=== PATIENT | female | born 1995 | race Two or more races ===

== ENCOUNTER 2021-12-28 09:07 | Emergency (ER) | payer OTHER, SELFPAY ==
[2021-12-28 09:29] VITALS: BP 129/82; PULSE 87; RESP 17; TEMP 36.4; O2SAT 98; BMI 27.3
--- NOTE | 2021-12-28 10:36 | ED.SKABFB ---
HPI - Skin/Abscess/Foreign Bdy General Chief complaint: Skin/Abscess/Foreign Body Stated complaint: abscess Time Seen by Provider: 12/28/21 09:43 Source: patient Mode of arrival: ambulatory Limitations: no limitations History of Present Illness HPI narrative: 26-year-old female healthy here with reports of 2 days of swelling and redness the right groin. Patient denies any fevers, chills, vomiting, general malaise. Related Data Previous Rx's Medication Instructions Recorded doxycycline monohydrate 100 mg 100 mg PO BID #20 tab 12/28/21 tablet Allergies Allergy/AdvReac Type Severity Reaction Status Date / Time No Known Allergies Allergy Unverified 07/31/20 17:46 Review of Systems Review of Systems: Yes all other systems are reviewed and are negative Constitutional: Constitutional: Reports no additional constitutional complaints, Denies body ache(s), Denies chills, Denies fever(s), Denies headache(s) and Denies weakness Eyes: Eyes: Reports no additional eye complaints and Denies change in vision ENT: Reports system reviewed and no additional complaints, except as documented, Denies dizziness, Denies headache(s), Denies nasal congestion, Denies nasal discharge and Denies neck pain Cardiovascular: Cardiovascular: Reports no additional cardiovascular complaints, Denies chest pain, Denies leg edema and Denies dyspnea Respiratory: Respiratory: Reports no additional respiratory complaints, Denies cough and Denies dyspnea Gastrointestinal: Gastrointestinal: Reports no additional gastrointestinal complaints, Denies abdominal pain, Denies diarrhea, Denies nausea and Denies vomiting Genitourinary: Genitourinary: Reports no additional female genitourinary complaints and Denies urinary incontinence Musculoskeletal: Musculoskeletal: Reports no additional musculoskeletal complaints, Denies back pain, Denies arthralgias, Denies joint swelling, Denies neck pain, Denies numbness and Denies tingling Integumentary/Breasts: Skin/Breast: Reports system reviewed and no additional complaints, except as docu, Reports swelling, Reports erythema and Denies rash Neurologic: Reports system reviewed and no additional complaints, except as documented, Denies Abnormal speech present, Denies dizziness, Denies headache(s), Denies numbness, Denies tingling and Denies weakness PMF Past Medical History Attestation statement: The following information was validated with the patient. Source: old records reviewed and nursing notes reviewed Social History Social History Advance Directives: Yes Advance Directives Information Provided: Yes Advance Directives on File: No Patient : No Physical Exam Vital Signs: Vital Signs: Last Vital Signs Temp 97.5 F 12/28/21 09:29 Pulse 83 12/28/21 11:18 Resp 16 12/28/21 11:18 BP 102/56 L 12/28/21 11:18 Pulse Ox 98 12/28/21 11:18 BMI result Body Mass Index 27.3 Const: General: cooperative, healthy appearing, comfortable and no acute distress Orientation/consciousness: patient oriented x3 Limitations: no limitations HENMT: Head: Yes normal to inspection Ears: hearing grossly normal bilaterally General nose exam: Normal external nose present Face and sinus: Yes normal facial exam Mouth: Normal oral and palatal mucosa present Throat: Yes posterior oropharynx normal Eyes: General: appearance normal, both eyes and all related structures Pupils: Equal, round and reactive pupils present Neck: Neck: Yes normal visual inspection Chest: Chest palpation & inspection: normal inspection of the chest Resp: Effort & Inspection: normal respiratory effort Auscultation: clear to auscultation bilaterally Cardio: Rate: regular rate Rhythm: regular rhythm Peripheral pulses: Peripheral pulses 2+ throughout GI: Other: To the right groin there is a medium-sized abscess with fluctuance and tenderness. Inspection: Yes normal to inspection Palpation (GI): Soft to palpation and nontender Auscultation: normal bowel sounds Back/Spine/Pelvis: Thoracic/Lumbar Spine: thoracic and lumbar spine normal to inspection Skin: General skin exam: no rashes or lesions noted Neuro: General: patient oriented x3, no focal motor deficits and normal sensation to monofilament Cranial nerves: Yes Equal, round and reactive pupils present Cognition (Neuro): normal cognition Speech: No Abnormal speech present Gait exam (Neuro): Normal gait present Motor exam (neuro): 5/5 motor strength present throughout Extrem: General: Yes normal to inspection Course Course Course Narrative: Abscess to the right groin for 2 days Will need I and D 1215-see procedure note. Patient tolerated well. Reviewed worrisome signs and symptoms of when to return to the emergency department. Comfortable discharge home. MDM - Skin/Abscess/Foreign Bdy Differential Diagnosis Differential diagnosis: Likely abscess of skin or subcutaneous tissue Medical Records Attestation: I reviewed the patient's medical records. Lab Data Attestation: I reviewed the patient's lab results. Procedures Abscess I/D Site: other (Groin) Side (if applicable): right Local Anesthetic: lidocaine 2% Amount of anesthesia used (mL): 5 Technique: incised with blade Amount of fluid expressed (mL): 10 Sent for culture/gram staining?: No Irrigation: Yes Packing used?: iodoform Discharge Plan Discharge Clinical Impression: Abscess of skin or subcutaneous tissue Patient Disposition: Home, Self-Care Instructions: Abscess (ED) Additional Instructions: Warm compresses Return in 48 hours for packing removal Prescriptions: New doxycycline monohydrate 100 mg tablet 100 mg PO BID Qty: 20 0RF Referrals: Maureen Stone MD [Primary Care Provider] - 2 days Interventions: ED Discharge Assessment Last Done: 12/28/21 11:56 Discharge Date/Time: 12/28/21 11:57
[2021-12-28] MEDS: Lidocaine HCl 2 % MPF 5 ML VIAL SUBCUT (11:14)
[2021-12-28] MEDS: Lidocaine 4 % Cream KIT 1 APPL TOPICAL (11:14)
[2021-12-28 11:18] VITALS: BP 102/56; PULSE 83; RESP 16; O2SAT 98
== END 2021-12-28 11:57 | disposition home or self-care (01) ==
PROVIDERS: Emergency Provider Emergency Medicine; PCP Internal Medicine
DX: L02.214 Cutaneous abscess of groin (principal)
CPT/HCPCS: 10060; 99283; 99284

== ENCOUNTER 2022-07-13 08:22 | Outpatient (REF) | payer OTHER, SELFPAY ==
[2022-07-13 08:46] LABS: Binax Internal Control QC Valid; Binax Now Covid-19 Ag Negative (Negative)
== END 2022-07-13 08:23 | disposition home or self-care (01) ==
LOC: HO.HMGCLDS 08:22
PROVIDERS: Visit Provider Internal Medicine
DX: Z20.822 Contact with and (suspected) exposure to COVID-19 (principal); J06.9 Acute upper respiratory infection, unspecified
CPT/HCPCS: 87811; C9803

== ENCOUNTER 2023-01-28 12:42 | Outpatient (REF) | payer OTHER, SELFPAY ==
[2023-01-28 13:21] LABS: Binax Internal Control QC Valid; Binax Now Covid-19 Ag Negative (Negative); Binax Performed by: PAULP
== END 2023-01-28 12:43 | disposition home or self-care (01) ==
LOC: HO.HMGCLDS 12:42
PROVIDERS: Visit Provider Nurse Practitioner Family
DX: Z20.822 Contact with and (suspected) exposure to COVID-19 (principal); J06.9 Acute upper respiratory infection, unspecified
CPT/HCPCS: 87811; C9803

== ENCOUNTER 2023-08-17 08:24 | Outpatient (AMB) | payer OTHER, SELFPAY ==
[2023-08-17 08:28] VITALS: BP 110/62; PULSE 85; TEMP 36.6; O2SAT 100
--- NOTE | 2023-08-17 08:28 | AM.OFFWIN_ITS ---
Intake Vital Signs 08/17/23 08:28 Height 5 ft BP 110/62 Blood Pressure Location Lt brachial Position Sitting Pulse 85 Pulse Source Pulse Oximeter Temp 97.9 F Temp Source Temporal Artery Scan Pulse Oximetry (%) 100 Oxygen Delivery Method Room Air Intake Visit Reasons: EP-lost smell, cough Intake Note: pt is here for lost of smell, cough Patient Tobacco Use Status: Never used Tobacco Allergies No Known Allergies Allergy (Verified 08/17/23 08:29) Do you need a note to return to daycare/school/sports/work: Yes HPI HPI Comments History of Present Illness Details 0834 This is a 27-year-old female without significant medical history presenting to the clinic for evaluation of fatigue, malaise, congestion, loss of taste and smell for the past few days, also reporting associated myalgias. 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 Also kids at home covid + Denies chest pain, shortness of breath, nausea, vomiting, abdominal pain, headache, vision changes, dizziness and weakness. Eating and drinking well. Physical examination benign Likely viral illness versus COVID-19. Unlikely neurological cause of loss of taste and smell, unlikely PE, pneumonia. Plan viral test. Supportive measures. Educated patient on diagnosis and treatment plan, answered all question, patient verbalizes understanding. At this time patient will be discharged home, advised to return with new or worsening symptoms. Educated on worrisome signs and symptoms and when to return. At this time I feel comfortable discharge home. [facility] Social History Housing: House Patient Tobacco Use Status: Never used Tobacco e-Cigarette/Vaping Use: Never Used Second Hand Smoke Exposure: No service: No Current occupational status: employed Current occupation: [employer] [place] Current occupational exposures/hazards: Yes Cognitive needs: No Hearing needs: No Vision needs: No Review of Systems Const Details: Constitutional : No Weight loss, No Fever, No Chills, + Fatigue, + Malaise ENT/Mouth : No sore throat, No Rhinorrhea Eyes: No Eye Pain, No Swelling, No Redness Cardiovascular : No Chest Pain, No SOB, No Dyspnea on Exertion, No Orthopnea, No Edema, No Palpitations Respiratory : No Cough, No Sputum, No Wheezing Gastrointestinal : No Nausea, No Vomiting, No Diarrhea, No Constipation, No abdominal Pain, No Hematochezia, No Melena Genitourinary : No Dysuria, No Urinary Frequency, No Hematuria, Musculoskeletal : No joint pain, + Myalgias, No Joint Swelling Skin : No Skin Lesions, No rash Neuro : No Weakness, No Numbness, No Dizziness, No Headache Psych : No Anxiety/Panic, No Depression All other systems reviewed and are negative All systems reviewed & are unremarkable except as noted in HPI and below Physical Exam Vital Signs: Last Vital Signs Temp 97.9 F 08/17/23 08:28 Pulse 85 08/17/23 08:28 BP 110/62 08/17/23 08:28 Pulse Ox 100 08/17/23 08:28 Oxygen Delivery Method Room Air 08/17/23 08:28 Vital signs stable Appearance: Alert.? Oriented X3.? No acute distress.? Head: Normocephalic, atraumatic, no step-offs or deformities Eyes: Pupils equal, round and reactive to light.? CVS: Normal heart rate and rhythm.? Pulses normal.? Respiratory: No respiratory distress.? Breath sounds normal.? Abdomen: Soft and nontender.? Skin: Skin warm and dry.? Normal skin color.? Normal skin turgor.? Extremities: No lower extremity edema.? No calf ttp. 5/5 strength to bilateral upper and lower extremitie Neuro: Oriented X 3.? No motor deficit.? No sensory deficit. CN 2-12 intact Assessment & Plan Assessment & Plan (1) Viral illness: Code(s): B34.9 - Viral infection, unspecified Plan Take your medications as prescribed. If you were prescribed antibiotics today, it is important that you take your medication to their entirety, do not skip any doses, do not finish them early. Follow-up with your primary care provider this week. Return to the emergency department with new or worsening symptoms. Such as fevers, chills, chest pain, shortness of breath, nausea, vomiting, dizziness, headache, vision changes, lethargy In case of emergency call 911 Orders: Orders SARS-CoV2/FLU/RSV Today B34.9 - Viral infection, unspecified BinaxNOW Covid-19 Ag Today B34.9 - Viral infection, unspecified Coding Level of Care Code Est Pt Level 3 (26349) Diagnoses Viral illness B34.9
== END 2023-08-17 08:46 | disposition home or self-care (01) ==
PROVIDERS: PCP Nurse Practitioner Family; Visit Provider Physician Assistant
DX: B34.9 Viral infection, unspecified (principal)
CPT/HCPCS: 99213

== ENCOUNTER 2023-08-17 08:37 | Outpatient (REF) | payer OTHER, SELFPAY ==
[2023-08-17 09:06] LABS: Binax Internal Control QC Valid; Binax Now Covid-19 Ag Negative (Negative); Binax Performed by: HO.BONILM
== END 2023-08-17 08:38 | disposition home or self-care (01) ==
LOC: HO.HMGCLDS 08:37
PROVIDERS: PCP Nurse Practitioner Family; Visit Provider Physician Assistant
DX: B34.9 Viral infection, unspecified (principal)
CPT/HCPCS: 87811

== ENCOUNTER 2023-08-17 08:38 | Outpatient (REF) | payer OTHER, SELFPAY ==
[2023-08-17 12:21] LABS: Influenza A PCR NEGATIVE (Negative); Influenza B PCR NEGATIVE (Negative); Resp Syncy Virus RNA Qual PCR NEGATIVE (Negative); SARS COV2 PCR INHOUSE NEGATIVE (Negative)
== END 2023-08-17 08:39 | disposition home or self-care (01) ==
LOC: HO.LAB 08:38
PROVIDERS: Visit Provider Physician Assistant
DX: B34.9 Viral infection, unspecified (principal)
CPT/HCPCS: 0241U

== ENCOUNTER 2023-08-30 09:26 | Outpatient (AMB) | payer OTHER, SELFPAY ==
--- NOTE | 2023-08-30 09:28 | A.OFFVIS_ITS ---
Intake Vital Signs 08/30/23 09:31 Height 5 ft Weight 156 lb BMI 30.5 BP 94/50 L Intake Visit Reasons: AUB/PCP Referral Intake Note: Last pap 2020 normal hx per pt @[facility] pt c/o heavy periods since stopping Depo The patient agreed to use of a medical records receptionist during this encounter. Scribed for WERO Gamble by Madai Cox, medical records receptionist, on 08/30/2023 at 9:54 am EST. Legal Analyst: Legal Analyst Present (Margo) Allergies No Known Allergies Allergy (Verified 08/30/23 09:33) Is last menstrual period known: Yes Last menstrual period: 08/09/23 HPI HPI Comments History of Present Illness Details She is here with complaints of heavy prolonged VB lasting 2 weeks at times. Was on Depo for many years; stopped 3 months ago. Delivered 2020, hx TOP 2021. Reports heavy menses since stopping Depo and regular menses prior starting Depo 7 years ago. Was seen at [facility] for blood transfusion and iron deficiency. Reports when she was on the Depo she felt depressed and angry. Now that she is off she feels normal. Reports taking RX for anxiety. Last pap 2020 normal hx per pt @[facility]. Reports a history of painful left breast lump that swells at times; no abscess or drainage noted in the past. Has breast fed in the past with no issues/or mastitis. No prior imaging. [facility] Medical History (Updated 08/30/23 @ 10:11 by Madai Cox) Breast pain, left Prolonged menstrual cycle Menorrhagia Anxiety Family History (Updated 08/30/23 @ 09:37 by DUNCAN Fontenot) Maternal Grandfather Colon cancer Social History (Updated 08/30/23 @ 09:37 by DUNCAN Fontenot) Housing: House Alcohol intake: current Alcohol intake frequency: holidays/special occasions only Patient Tobacco Use Status: Never used Tobacco e-Cigarette/Vaping Use: Never Used Second Hand Smoke Exposure: No service: No Current occupational status: employed Current occupation: [employer] [place] Current occupational exposures/hazards: Yes Sexual orientation: Straight/Heterosexual Gender identity: Female Cognitive needs: No Hearing needs: No Vision needs: No Female Reproductive History Menstrual Duration of menses: >10 days Date of last menstrual period: 08/09/23 control method: none Total pregnancies: 3 Full term: 2 Number of Living Children: 2 Ab induced: 1 Physical Exam Vital Signs: Last Vital Signs BP 94/50 L 08/30/23 09:31 BMI result Body Mass Index 30.5 Const General: cooperative, healthy appearing, comfortable, no acute distress, well developed, alert and awake Chest Other: left breast scar tissue at 6:00; tender with exam Chest palpation & inspection: normal inspection of the chest Breast/axilla inspection: Other (no puckering, dimpling, peau de orange, retraction, discharge, masses) Other: General: Yes bladder normal to palpation External Female Exam: normal external appearance and normal appearance of the urethra Speculum Exam - Vagina: normal appearance of the vagina, normal palpation and normal vaginal discharge Speculum Exam - Cervix: normal appearance of the cervix and normal palpation Bimanual exam- vagina & uterus: normal bimanual exam, normal palpation, bladder normal to palpation and normal palpation Bimanual Exam- Adnexa, other: normal adnexae and no masses Results AMB Test Urine AMB Test Urine Negative Last Edit by DUNCAN Fontenot on 08/30/23 09:41 Results Reviewed Results Reviewed: Laboratory Last Values Tst Clinic Negative 08/30/23 09:41 Assessment & Plan Assessment & Plan (1) Menorrhagia: Code(s): N92.0 - Excessive and frequent menstruation with regular cycle Plan: Discussed: Lab work ordered. Sign release of records from [facility]. All of her questions and concerns were addressed to the best of my ability and shared decision making. She is agreeable to plan of care. (2) Prolonged menstrual cycle: Code(s): N92.1 - Excessive and frequent menstruation with irregular cycle (3) control counseling: Code(s): Z30.09 - Encounter for other general counseling and advice on contraception Plan: Schedule BC consult. BC literature given. (4) Breast pain, left: Code(s): N64.4 - Mastodynia Plan: Breast US ordered. Follow up in person for results. Orders: Orders Thyroid Stimulating Hormone Today N92.1 - Excessive and frequent menstruation with irregular cycle Bacterial Vaginosis Panel Today N92.0 - Excessive and frequent menstruation with regular cycle, N92.1 - Excessive and frequent menstruation with irregular cycle AMB HCG Urine Test Today Z32.02 - Encounter for test, result negative US pelvic and transvaginal Today N93.9 - Abnormal uterine and vaginal bleeding, unspecified Complete Blood Count no Diff Today N93.9 - Abnormal uterine and vaginal bleeding, unspecified CT NG by PCR Today N92.0 - Excessive and frequent menstruation with regular cycle, N92.1 - Excessive and frequent menstruation with irregular cycle Pap Smear Today N92.0 - Excessive and frequent menstruation with regular cycle, N92.1 - Excessive and frequent menstruation with irregular cycle US breast LT complete Today N64.4 - Mastodynia Coding Level of Care Code New Pt Level 4 (16956) Diagnoses Menorrhagia N92.0 Prolonged menstrual cycle N92.1 control counseling Z30.09 Breast pain, left N64.4
[2023-08-30 09:31] VITALS: BP 94/50; BMI 30.5
== END 2023-08-30 10:14 | disposition home or self-care (01) ==
PROVIDERS: PCP Nurse Practitioner Family; Visit Provider Advanced Practice Midwife
DX: N92.0 Excessive and frequent menstruation with regular cycle (principal); N92.1 Excessive and frequent menstruation with irregular cycle; Z30.09 Encounter for other general counseling and advice on contraception; N64.4 Mastodynia; Z32.02 Encounter for pregnancy test, result negative
CPT/HCPCS: 99204

== ENCOUNTER 2023-08-30 09:26 | Outpatient (REF) | payer OTHER, SELFPAY | END 2023-08-30 09:27 | disposition home or self-care (01) | LOC: HO.LAB 09:26 | PROVIDERS: PCP Nurse Practitioner Family; Visit Provider Advanced Practice Midwife | DX: N92.1 Excessive and frequent menstruation with irregular cycle (principal); N64.4 Mastodynia; Z30.09 Encounter for other general counseling and advice on contraception | CPT/HCPCS: 81025; 99202 ==

== ENCOUNTER 2023-08-30 10:04 | Outpatient (REF) | payer OTHER, SELFPAY ==
[2023-08-30 16:19] LABS: CT PCR NOT DETECTED (Not Detect.); NG PCR NOT DETECTED (Not Detect.)
[2023-08-31 12:57] LABS: BV Int Neg Control Negative (Negative); BV Int Pos Control Positive (Positive)
== END 2023-08-30 10:05 | disposition home or self-care (01) ==
LOC: HO.LNP 10:04
PROVIDERS: Visit Provider Advanced Practice Midwife
DX: N92.1 Excessive and frequent menstruation with irregular cycle (principal)
CPT/HCPCS: 0353U; 87480; 87510; 87660; 88142

== ENCOUNTER 2023-09-01 10:53 | Outpatient (AMB) | payer OTHER, SELFPAY ==
--- NOTE | 2023-09-01 10:45 | A.OFFPC_ITS ---
Vital Signs 09/01/23 10:48 Weight 156 lb BP 112/68 Blood Pressure Location Lt brachial Position Sitting Pulse 52 Pulse Source Pulse Oximeter Pulse Oximetry (%) 99 Oxygen Delivery Method Room Air Intake Visit Reasons: PE Allergies No Known Allergies Allergy (Verified 09/01/23 10:48) Tobacco use date assessed: 03/02/23 Dental Screening Dental Screen Date: 09/01/23 Did you have a dental visit in the last 12 months?: No Did you have a dental problem in the last 6 months where you did not have access to dental care?: No Was dental information given to patient?: Patient has dentist HPI PE HPI Details Pt is here for a PE. Will order labs. 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 Pt reports that 2 months ago she woke up with sharp left cervical neck pain that radiated to her left occipital region. She reports that this was tender with touch. Pt felt pain behind her eye as well as blurred vision. She does experience photophobia and sonophobia, with tenderness with palpation of region. She states that the pain improved after 2 days but has since come back. She reports that these episodes last from anywhere from 2-5 days. ? occipital neuralgia. Will order head CT. Baclofen was sent but pt has not started this yet. She was placed on propranolol previously for similar headaches which did not help. Pt c/o increased anxiety and depression. She does not want a therapist. Will start sertraline 25mg. Denies any SI and HI. [facility] Medical History (Updated 09/01/23 @ 12:10 by NAWAF Deleon-LEVON) Breast pain, left Prolonged menstrual cycle Menorrhagia Anxiety Family History Maternal Grandfather Colon cancer Social History Housing: House Alcohol intake: current Alcohol intake frequency: holidays/special occasions only Patient Tobacco Use Status: Never used Tobacco e-Cigarette/Vaping Use: Never Used Second Hand Smoke Exposure: No service: No Current occupational status: employed Current occupation: [employer] [facility] [place] Current occupational exposures/hazards: Yes Sexual orientation: Straight/Heterosexual Gender identity: Female Cognitive needs: No Hearing needs: No Vision needs: No Review of Systems Const Denies chills, Denies fever(s) and Reports headache(s) Eyes Denies blurry vision ENT Denies vertigo, Denies dizziness, Reports headache(s) and Denies sore throat Card Denies chest pain at rest, Denies chest pain with activity, Denies diaphoresis, Denies dyspnea and Denies dyspnea on exertion Resp Denies cough, Denies dyspnea, Denies dyspnea on exertion and Denies wheezing GI Denies abdominal pain, Denies melena, Denies hematochezia, Denies constipation, Denies diarrhea and Denies loose stools Denies hematuria Musc Denies numbness and Denies tingling Skin/Breast Denies lesions Neuro Denies vertigo, Denies dizziness, Reports headache(s), Denies numbness and Denies tingling Psych Reports anxiety, Reports depression, Denies homicidal ideation, Denies suicidal ideation and Denies other (substance abuse) Aller/Immun Denies wheezing Physical exam (Primary Care) Vital Signs: Last Vital Signs Pulse 52 09/01/23 10:48 BP 112/68 09/01/23 10:48 Pulse Ox 99 09/01/23 10:48 Oxygen Delivery Method Room Air 09/01/23 10:48 Tobacco/Smoking Status: Tobacco use Status Tobacco use date assessed 03/02/23 09/01/23 10:46 Patient Tobacco Use Status Never used Tobacco 09/01/23 10:46 e-Cigarette/Vaping Use Never Used 09/01/23 10:46 Const General: cooperative Nutritional Appearance: well nourished Orientation/consciousness: patient oriented x3 HENRI Head: Yes normal to inspection, Yes normocephalic and Yes atraumatic Ears: TM's normal bilaterally Eyes General: appearance normal, both eyes and all related structures Alignment and Position: alignment normal and position normal Neck Neck: Yes normal visual inspection and Yes no lymphadenopathy Thyroid: Thyroid normal Resp Effort & Inspection: normal respiratory effort Auscultation: clear to auscultation bilaterally Cardio Rate: regular rate Rhythm: regular rhythm Heart sounds: S1 normal heart sound present, S2 normal heart sound present and no murmurs GI Palpation (GI): Soft to palpation and nontender Auscultation: normal bowel sounds Skin Rashes: no rashes Neuro Other: no nystagmus with 6 cardinal gazes, finger to thumb intact, arm pull test negative General: patient oriented x3, moves all extremities, no focal motor deficits, CN's II-XI intact bilaterally and deep tendon reflexes 2+ bilaterally Coordination: [id number] test normal Romberg Test: Negative Psych Appearance: grossly normal Mental Status: mental status grossly normal Speech and movement: Normal speech and movement present Affect: normal affect Attitude: cooperative Thought process: Normal thought process present Thought content: Normal thought content present Insight: Good insight present (Psych) Judgement: Good judgement present (Psych) Assessment and Plan Assessment & Plan (1) New onset headache: Code(s): R51.9 - Headache, unspecified Plan: CT ordered, baclofen encouraged to try with onset of NUNO (2) Physical exam: Code(s): Z00.00 - Encounter for general adult medical examination without abnormal findings (3) Anxiety: Code(s): F41.9 - Anxiety disorder, unspecified Plan: started sertraline Plan The patient agreed to the use of a medical management trainer for this encounter. Scribed for LEX Mendez by Misty Trevizo medical management trainer, on 09/01/2023 at 11:15 EST Orders: Orders CT head/brain wo IV con Today R51.9 - Headache, unspecified Medications: New sertraline 25 mg PO DAILY 90 days 90 tabs 0RF Refilled propranolol 20 mg PO DAILY 90 days 90 tabs 0RF baclofen 10 mg PO BID 12 days 24 tabs 0RF Coding Level of Care Code Est Pt Prev Care 18-39y(07274) Diagnoses New onset headache R51.9 Physical exam Z00.00 Anxiety F41.9
[2023-09-01 10:48] VITALS: BP 112/68; PULSE 52; O2SAT 99
== END 2023-09-01 12:23 | disposition home or self-care (01) ==
LOC: HO.HMGC 10:53
PROVIDERS: PCP Nurse Practitioner Family; Visit Provider Nurse Practitioner Family
DX: R51.9 Headache, unspecified (principal); Z00.00 Encounter for general adult medical examination without abnormal findings; F41.9 Anxiety disorder, unspecified
CPT/HCPCS: 99395

== ENCOUNTER 2023-09-01 13:20 | Outpatient (REF) | payer OTHER, SELFPAY ==
--- NOTE | ~2023-09-01 | US_ITS ---
EXAMINATION: US PELVIS COMPLETE CLINICAL INFORMATION: Abnormal uterine bleeding COMPARISON: None TECHNIQUE: Transabdominal and transvaginal imaging was performed. FINDINGS: The uterus is of normal size and echogenicity measuring 8.1 x 4.2 x 5.1 cm. A regular homogeneous endometrium is identified measuring 1.0 cm. Trace fluid is noted within the endometrial canal. Both ovaries are of normal size and echogenicity. The right measures 2.6 x 2.4 x 1.5 cm for a volume of 4.7 mL. The left measures 2.9 x 1.9 x 2.7 cm for a volume of 1.5 mL. There is trace physiologic volume simple pelvic free fluid. US/US pelvic and transvaginal IMPRESSION: Trace fluid is noted within the endometrial canal. Otherwise unremarkable pelvic ultrasound.
== END 2023-09-01 13:21 | disposition home or self-care (01) ==
LOC: HO.HMGCX 13:20
PROVIDERS: PCP Nurse Practitioner Family; Visit Provider Advanced Practice Midwife
DX: N93.9 Abnormal uterine and vaginal bleeding, unspecified (principal); R51.9 Headache, unspecified
CPT/HCPCS: 76830; 76856

== ENCOUNTER 2023-11-30 09:23 | Outpatient (AMB) | payer OTHER, SELFPAY ==
[2023-11-30 09:32] VITALS: BP 122/72; PULSE 94; TEMP 36.7; O2SAT 99; BMI 30.5
--- NOTE | 2023-11-30 09:32 | AM.OFFWIN_ITS ---
Intake Vital Signs 11/30/23 09:32 Height 5 ft Weight 156 lb BMI 30.5 BP 122/72 Blood Pressure Location Lt brachial Position Sitting Pulse 94 Pulse Source Pulse Oximeter Temp 98.0 F Temp Source Temporal Artery Scan Pulse Oximetry (%) 99 Oxygen Delivery Method Room Air Intake Visit Reasons: EP cough Patient Tobacco Use Status: Never used Tobacco Allergies No Known Allergies Allergy (Verified 09/01/23 10:48) HPI EP cough HPI Details Cold/flu symptoms, cough, fatigue for the past several days. Requesting Covid test. PFSH Medical History Breast pain, left Prolonged menstrual cycle Menorrhagia Anxiety Family History Maternal Grandfather Colon cancer Social History Housing: House Alcohol intake: current Alcohol intake frequency: holidays/special occasions only Patient Tobacco Use Status: Never used Tobacco e-Cigarette/Vaping Use: Never Used Second Hand Smoke Exposure: No service: No Current occupational status: employed Current occupation: [employer] [place] Current occupational exposures/hazards: Yes Sexual orientation: Straight/Heterosexual Gender identity: Female Cognitive needs: No Hearing needs: No Vision needs: No Review of Systems Const All systems reviewed & are unremarkable except as noted in HPI and below Physical Exam Vital Signs: Last Vital Signs Temp 98.0 F 11/30/23 09:32 Pulse 94 11/30/23 09:32 BP 122/72 11/30/23 09:32 Pulse Ox 99 11/30/23 09:32 Oxygen Delivery Method Room Air 11/30/23 09:32 BMI result Body Mass Index 30.5 Const General: cooperative and ill appearing acutely HEENT Head: Yes normal to inspection Ears: hearing grossly normal bilaterally General nose exam: Normal external nose present Face and sinus: Yes normal facial exam Throat: Yes posterior oropharynx normal Resp Effort & Inspection: normal respiratory effort Auscultation: clear to auscultation bilaterally Cardio Palpation: normal PMI Rate: regular rate Rhythm: regular rhythm Skin General skin exam: no rashes or lesions noted Assessment & Plan Assessment & Plan (1) Symptoms of upper respiratory infection (URI): Code(s): R09.89 - Other specified symptoms and signs involving the circulatory and respiratory systems Plan: Covid/Flu/RSV swab obtained. Patient will be notified once available. Advised rest, hydration, cold/flu medication/Tylenol prn fever/discomfort. Coding Level of Care Code Est Pt Level 3 (78772) Diagnoses Symptoms of upper respiratory infection (URI) R09.89
== END 2023-11-30 10:22 | disposition home or self-care (01) ==
LOC: HO.HMGWI 09:23
PROVIDERS: PCP Nurse Practitioner Family
DX: U07.1 COVID-19 (principal)
CPT/HCPCS: 99213

== ENCOUNTER 2023-11-30 09:25 | Outpatient (REF) | payer OTHER, SELFPAY ==
[2023-11-30 12:41] LABS: Influenza A PCR NEGATIVE (Negative); Influenza B PCR NEGATIVE (Negative); Resp Syncy Virus RNA Qual PCR NEGATIVE (Negative); SARS COV2 PCR INHOUSE POSITIVE (Negative)
== END 2023-11-30 09:26 | disposition home or self-care (01) ==
LOC: HO.LAB 09:25
PROVIDERS: Visit Provider Nurse Practitioner Family
DX: R52 Pain, unspecified (principal); Z11.52 Encounter for screening for COVID-19
CPT/HCPCS: 0241U

== ENCOUNTER 2023-12-22 08:43 | Outpatient (REF) | payer OTHER, SELFPAY ==
[2023-12-22 11:43] LABS: MANUAL DIFF FLAG NO
[2023-12-22 12:05] LABS: Basophils Percent Auto 0.5 % (0-2); Eosinophils Absolute Auto 0.1 X10*3/uL (0.0-0.4); Eosinophils Percent Auto 1.4 % (0-4); Hematocrit 34.8 % (37.0-47.0); Hemoglobin 11.4 g/dl (12.0-16.0); Imm Gran Abs Auto 0.01 X10*3/uL (0.00-0.03); Imm Gran Pct Auto 0.2 % (0.0-0.4); Lymphocytes Absolute Auto 1.5 X10*3/uL (1.2-4.9); Lymphocytes Percent Auto 35.1 % (20-40); Mean Corpuscular HGB Conc 32.8 g/dl (31.0-35.0); Mean Corpuscular Hemoglobin 26.3 pg (27.0-33.0); Mean Corpuscular Volume 80.2 fL (80.0-98.0); Monocytes Absolute Auto 0.4 X10*3/uL (0.1-1.2); Monocytes Percent Auto 8.1 % (2-11); Neutrophils Absolute Auto 2.4 x10*3/uL (2.0-8.3); Neutrophils Percent Auto 54.7 % (45-73); Platelet Count 326 X10*3/uL (160-400); Red Blood Count 4.34 X10*6/uL (4.20-5.50); Red Cell Distribution Width 15.7 % (11.0-16.0); White Blood Count 4.3 X10*3/uL (4.8-10.8)
[2023-12-22 12:17] LABS: Alanine Aminotransferase 12 U/L (0-31); Albumin Level 4.3 g/dL (3.5-5.0); Alkaline Phosphatase 73 U/L (39-117); Anion Gap 10 (12-20); Aspartate Amino Transferase 18 U/L (5-31); Bilirubin Total 0.4 mg/dL (0.0-1.0); Blood Urea Nitrogen 11 mg/dL (9-16); Calcium 9.3 mg/dL (8.4-10.2); Carbon Dioxide 23 mmol/L (22-29); Chloride 108 mmol/L (96-108); Cholesterol 114 mg/dL (<200); Estimated Glomerular Filt Rate > 60; Glucose Fasting 95 mg/dL (60-99); HDL Cholesterol 44 mg/dL (>40); LDL Cholesterol Calculated 64 mg/dL (<100); Potassium 3.8 mmol/L (3.3-5.1); Sodium 137 mmol/L (135-145); Total Protein 7.1 g/dL (6.5-8.0); Triglycerides 33 mg/dL (<150)
[2023-12-22 13:21] LABS: Appearance Urine Clear; Color Urine Yellow; Glucose Urine UA Negative (Negative); Leukocyte Esterase Urine Negative (Negative); Nitrite Urine Negative (Negative); PH 6.5 (5.0-9.0); Specific Gravity - Urine 1.025 (1.005-1.025); UMIC TRIGGER UACC YES; Urine Blood Large (3+) (Negative); Urine Ketones Negative (Negative); Urine Protein Negative (Neg-Trace)
[2023-12-22 13:24] LABS: Bacteria Urine Trace (None Seen); Hyaline Casts Urine 0-2 /LPF (0-2); Squamous Epithelial Cell Urine 0-2 /HPF (0-2); WBC Urine 0-5 /HPF (0-5)
== END 2023-12-22 08:44 | disposition home or self-care (01) ==
LOC: HO.HMGCLDS 08:43
PROVIDERS: PCP Nurse Practitioner Family; Visit Provider Nurse Practitioner Family
DX: R00.0 Tachycardia, unspecified (principal); F41.9 Anxiety disorder, unspecified
CPT/HCPCS: 36415; 80053; 80061; 81001; 84443; 85025

== ENCOUNTER 2024-03-01 13:07 | Emergency (ER) | payer OTHER, SELFPAY ==
--- NOTE | ~2024-03-01 | CT_ITS ---
EXAMINATION: CT ABDOMEN AND PELVIS WITHOUT CONTRAST CLINICAL INFORMATION: Constipation with abdominal and bilateral flank pain COMPARISON: Ultrasound pelvis 09/01/2023 TECHNIQUE: Multidetector volumetric imaging was performed from the superior aspect of the liver through the pubic symphysis. Sagittal and coronal reformatted images were obtained on the technologist's workstation. This CT examination was performed using dose optimization techniques as appropriate, variously including the following: *Automated exposure control *Adjustment of mA and/or kV according to patient size (this includes techniques or standardized protocols for targeted exams where dose is matched to indication/reason for exam; i.e. extremities or head) *Use of iterative reconstruction technique DLP: 450 mGy-cm FINDINGS: LUNG BASES: The visualized lung bases are unremarkable. LIVER, GALLBLADDER, AND BILIARY TREE: The liver is normal in size, shape, and attenuation. No focal hepatic lesion or biliary ductal dilatation is present. The gallbladder is unremarkable with no evidence of radiopaque gallstones, gallbladder wall thickening, or obvious pericholecystic inflammatory changes. PANCREAS: Unremarkable. SPLEEN: Unremarkable. ADRENAL GLANDS: Unremarkable. KIDNEYS AND URETERS: The kidneys are normal in size, shape, and attenuation. No hydronephrosis, hydroureter, or calculi seen. No perinephric stranding. BLADDER: Unremarkable. GASTROINTESTINAL TRACT: The small and large bowel are unremarkable. The appendix is unremarkable. ABDOMINAL WALL: No significant hernia is appreciated. LYMPH NODES: Normal. VASCULAR: Unremarkable. PELVIC VISCERA: Unremarkable. OSSEOUS STRUCTURES: Unremarkable. CT/CT abdomen pelvis wo IV con IMPRESSION: No significant abnormality. Fleischner guidelines were followed.
[2024-03-01 14:06] VITALS: BP 103/70; PULSE 84; RESP 17; TEMP 36.6; O2SAT 98; BMI 29.3
--- NOTE | 2024-03-01 14:06 | ED_ITS ---
HPI - General Adult General Chief complaint: Back Pain/Injury Stated complaint: kidney pain Time Seen by Provider: 03/01/24 15:06 History of Present Illness HPI narrative: patient complains of back pain worse on the right This is been going on for about a week, coincident with this she got a strep throat infection which was treated with antibiotic, as well as muscle aches which were treated with tramadol She developed constipation after taking the tramadol and has only been passing small amounts over the last 2-3 days, she stopped taking the tramadol yesterday She also says she is urinating smaller amounts and more frequently than normal but denies any pain or discomfort with urination The back pain does not radiate, it is located on the right side of her low back, there is no associated numbness weakness or tingling no incontinence no fever no abdominal pain no chest pain Main complaints today are right-sided back pain, constipation, and feeling decreased urination Related Data Previous Rx's ?Medication ?Instructions ?Recorded propranolol 20 mg tablet 20 mg PO DAILY 90 days #90 tabs 09/01/23 sertraline 25 mg tablet 25 mg PO DAILY 90 days #90 tabs 12/05/23 gabapentin 100 mg capsule 100 mg PO BEDTIME #30 caps 12/30/23 acetaminophen 500 mg tablet 1,000 mg (2 x 500 mg) PO QID PRN 03/01/24 pain #30 tabs diazepam 5 mg tablet (Valium) 5 mg PO BID PRN muscle spasm #10 03/01/24 tabs ibuprofen 600 mg tablet 600 mg PO Q6H PRN pain #20 tabs 03/01/24 nitrofurantoin 100 mg PO Q12H 5 days #10 caps 03/01/24 monohydrate/macrocrystals 100 mg capsule (Macrobid) oxycodone 5 mg tablet 5 mg PO Q6H PRN pain 3 days #12 03/01/24 tabs Allergies Allergy/AdvReac Type Severity Reaction Status Date / Time No Known Allergies Allergy Verified 03/01/24 14:10 [facility] Past Medical History Source: nursing notes reviewed Medical History Breast pain, left Prolonged menstrual cycle Menorrhagia Anxiety Family History Family History Maternal Grandfather Colon cancer Social History Social History Housing: House Alcohol intake: current Alcohol intake frequency: holidays/special occasions only Patient Tobacco Use Status: Never used Tobacco e-Cigarette/Vaping Use: Never Used Second Hand Smoke Exposure: No Advance Directives: No Advance Directives Information Provided: No service: No Current occupational status: employed Current occupation: [employer] Current occupational exposures/hazards: Yes Sexual orientation: Straight/Heterosexual Gender identity: Female Cognitive needs: No Hearing needs: No Vision needs: No Physical Exam ED Vital Signs: Vital Signs - 24 hr 03/01/24 14:06 Temperature 98 F Pulse Rate 84 Respiratory Rate 17 Blood Pressure 103/70 Pulse Oximetry 98 Oxygen Delivery Method Room Air BMI result Body Mass Index 29.3 general appearance is uncomfortable no acute distress Head is normocephalic atraumatic Neck is supple The chest is clear to auscultation chest wall nontender The abdomen is soft nontender The back had right-sided lower lumbar and upper lumbar tenderness, skin was normal in appearance no redness no rash no focal bony tenderness, pain is worse with certain movements Extremities full range of motion x4 Neuro gait and balance are normal, motor is 5/5 x4, sensation intact and symmetrical, patient interaction comprehension and expression are all normal Course Course Course Narrative: This is an RME: Additional HPI, ROS, PE not included below will be deferred to primary provider. 28 yo female presents with flank pain and decreased urination. Recent antibiotic use. Positive for constipation. Denies chest pain, shortness of breath, nausea, vomiting, diarrhea, dizziness. Plan- labs and imaging patient with right-sided back pain, constipation, and feeling decreased or frequent urination She was treated with analgesics muscle relaxer and felt significantly improved CT abdomen and pelvis did not show any kidney stones or any acute abnormality and was normal CBC no acute abnormalities, chemistry no acute abnormalities negative Serology is negative for COVID or flu, urinalysis was negative for nitrites, 6- 10 WBC, 3-5 squamous, 1+ bacteria I discussed this with the patient and said it has likely a contaminated specimen but we could be sure as she has the symptoms of mild frequency and urinating small amounts She did not want to repeat the urine sample and 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, and I did write a prescription for Macrobid and if she wants she could go to her work setting and double check that she actually has a urine tract infection if she does not do this I advised take the antibiotic For her constipation I advised her to take Dulcolax and senna every day as a preventative and if she needs to she can do a Fleet enema 1 time to clear out her bowel Medications Administered Discontinued Medications Generic Name Dose Route Start Last Admin Trade Name Dhruv PRN Reason Stop Dose Admin Acetaminophen 975 mg 03/01/24 16:48 03/01/24 16:55 Acetaminophen 325 Mg Tablet PO 03/01/24 16:49 975 mg ONCE ONE Administration Bisacodyl 10 mg 03/01/24 14:10 03/01/24 15:43 Bisacodyl 5 Mg Tablet.Dr PO 03/01/24 14:11 10 mg ONCE ONE Administration Diazepam 5 mg 03/01/24 16:48 03/01/24 16:55 Diazepam 5 Mg Tablet PO 03/01/24 16:49 5 mg ONCE ONE Administration Docusate Sodium 100 mg 03/01/24 14:10 03/01/24 15:43 Docusate Sodium 100 Mg/10 Ml Liquid PO 03/01/24 14:11 100 mg ONCE ONE Administration Ketorolac Tromethamine 30 mg 03/01/24 16:48 03/01/24 16:55 Ketorolac Tromethamine 30 Mg/Ml Vial IM 03/01/24 16:49 30 mg ONCE ONE Administration Morphine Sulfate 4 mg 03/01/24 14:42 03/01/24 15:40 Morphine Sulfate 4 Mg/Ml Cartridge IVPUSH 03/01/24 14:43 Not Given ONCE ONE Protocol Oxycodone HCl 5 mg 03/01/24 16:48 03/01/24 16:55 Oxycodone Hcl Immed Release 5 Mg Tablet PO 03/01/24 16:49 5 mg ONCE ONE Administration Senna 15 ml 03/01/24 14:10 03/01/24 15:43 Senna [place] Extract Oral Syrup 15 Ml Syrup PO 03/01/24 14:11 15 ml ONCE ONE Administration Medical Decision Making Lab Data MDM Lab Attestation statement: I reviewed the patient's lab results. 03/01/24 14:41 03/01/24 14:41 Labs: Lab Results 03/01/24 03/01/24 Range/Units 14:41 15:46 WBC 8.5 (4.8-10.8) X10*3/uL RBC 4.71 (4.20-5.50) X10*6/uL Hgb 12.1 (12.0-16.0) g/dl Hct 37.3 (37.0-47.0) % MCV 79.2 L (80.0-98.0) fL MCH 25.7 L (27.0-33.0) pg MCHC 32.4 (31.0-35.0) g/dl RDW 15.1 (11.0-16.0) % Plt Count 345 (160-400) X10*3/uL MPV 9.4 (9.4-12.3) fL Immature Gran % (Auto) 0.4 (0.0-0.4) % Neut % (Auto) 66.6 (45-73) % Lymph % (Auto) 24.3 (20-40) % [facility] % (Auto) 7.7 (2-11) % Eos % (Auto) 0.8 (0-4) % Baso % (Auto) 0.2 (0-2) % Lymph # (Auto) 2.1 (1.2-4.9) X10*3/uL [facility] # (Auto) 0.7 (0.1-1.2) X10*3/uL Eos # (Auto) 0.1 (0.0-0.4) X10*3/uL Baso # (Auto) 0.0 (0.0-0.2) X10*3/uL Abs Immat Gran (auto) 0.03 (0.00-0.03) X10*3/uL Absolute Neuts (auto) 5.6 (2.0-8.3) x10*3/uL Absolute Nucleated RBC 0.000 (0.0-0.012) X10*3/uL Nucleated RBC % (auto) 0.0 (0.0-0.2) /100WBC Sodium 140 (135-145) mmol/L Potassium 3.5 (3.3-5.1) mmol/L Chloride 105 (96-108) mmol/L Carbon Dioxide 26 (22-29) mmol/L Anion Gap 13 (12-20) BUN 7 L (9-16) mg/dL Creatinine 0.64 (0.5-1.4) mg/dL Estim Creat Clear Calc 114.6 Estimated GFR > 60 Random Glucose 85 (60-115) mg/dL Calcium 9.7 (8.4-10.2) mg/dL Magnesium 2.3 (1.6-2.6) mg/dL Total Bilirubin 0.2 (0.0-1.0) mg/dL AST 13 (5-31) U/L ALT 10 (0-31) U/L Alkaline Phosphatase 81 (39-117) U/L Total Protein 7.7 (6.5-8.0) g/dL Albumin 4.4 (3.5-5.0) g/dL Beta HCG, Quant < 2 mIU/mL Urine Color Yellow Urine Appearance Clear Urine pH 7.0 (5.0-9.0) Ur Specific [place] 1.010 (1.005-1.025) Urine Protein Trace (Neg-Trace) mg/dL Urine Glucose (UA) Negative (Negative) mg/dL Urine Ketones Trace (Negative) mg/dL Urine Blood Negative (Negative) Urine Nitrite Negative (Negative) Ur Leukocyte Esterase Trace H (Negative) Urine RBC 0-2 (0-2) /HPF Urine WBC 6-10 H (0-5) /HPF Ur Squamous Epith Cells 3-5 (0-2) /HPF Urine Bacteria 1+ (None Seen) Hyaline Casts 0-2 (0-2) /LPF Urine Test NEGATIVE (NEGATIVE) Influenza Type A (PCR) NEGATIVE (Negative) Influenza Type B (PCR) NEGATIVE (Negative) RSV RNA Qual (PCR) NEGATIVE (Negative) SARS-CoV-2 RNA (RT-PCR) NEGATIVE (Negative) Discharge Plan Discharge Clinical Impression: Back pain, Constipation, UTI (urinary tract infection) Patient Disposition: Home, Self-Care Additional Instructions: for the back pain I wrote for Motrin and Tylenol as the baseline, if you are home you can use the Valium as a muscle relaxer and oxycodone narcotic pain reliever if needed But they are sedating so you should not be driving her car for 6 hours after taking Valium or oxycodone Any narcotic whether it is tramadol or oxycodone causes constipation so I wrote for a Fleet enema to use if needed, available [id number] at the pharmacy As well as long as you are taking the narcotic as a preventative you should take Dulcolax twice a day available [id number] as well as senna your urine sample showed possible infection, it had white cells which can be infection or can be contamination, the sample was mildly contaminated You did not want to repeat the sample here but 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 you can get a repeat urinalysis done before you take the antibiotic, Macrobid, and see if you really need to take it Return any time any worse condition or any concerns If symptoms are not better next week make an appointment and follow with your doctor Prescriptions: New acetaminophen 500 mg tablet 1,000 mg PO QID PRN (Reason: pain) Qty: 30 0RF nitrofurantoin monohyd/m-cryst [Macrobid] 100 mg capsule 100 mg PO Q12H 5 Days Qty: 10 0RF Rx Instructions: must administer with a meal/food ibuprofen 600 mg tablet 600 mg PO Q6H PRN (Reason: pain) Qty: 20 0RF diazepam [Valium] 5 mg tablet 5 mg PO BID PRN (Reason: muscle spasm) Qty: 10 0RF oxycodone 5 mg tablet 5 mg PO Q6H PRN (Reason: pain) 3 Days Qty: 12 0RF Rx Instructions: Partial Fill upon patient request. No Action sertraline 25 mg tablet 25 mg PO DAILY 90 Days Qty: 90 0RF gabapentin 100 mg capsule 100 mg PO BEDTIME Qty: 30 0RF propranolol 20 mg tablet 20 mg PO DAILY 90 Days Qty: 90 0RF Print Language: Citizen [place]
[2024-03-01 14:46] LABS: MANUAL DIFF FLAG NO
[2024-03-01 14:48] LABS: Basophils Percent Auto 0.2 % (0-2); Eosinophils Absolute Auto 0.1 X10*3/uL (0.0-0.4); Eosinophils Percent Auto 0.8 % (0-4); Hematocrit 37.3 % (37.0-47.0); Hemoglobin 12.1 g/dl (12.0-16.0); Imm Gran Abs Auto 0.03 X10*3/uL (0.00-0.03); Imm Gran Pct Auto 0.4 % (0.0-0.4); Lymphocytes Absolute Auto 2.1 X10*3/uL (1.2-4.9); Lymphocytes Percent Auto 24.3 % (20-40); Mean Corpuscular HGB Conc 32.4 g/dl (31.0-35.0); Mean Corpuscular Hemoglobin 25.7 pg (27.0-33.0); Mean Corpuscular Volume 79.2 fL (80.0-98.0); Mean Platelet Volume 9.4 fL (9.4-12.3); Monocytes Absolute Auto 0.7 X10*3/uL (0.1-1.2); Monocytes Percent Auto 7.7 % (2-11); Neutrophils Absolute Auto 5.6 x10*3/uL (2.0-8.3); Neutrophils Percent Auto 66.6 % (45-73); Platelet Count 345 X10*3/uL (160-400); Red Blood Count 4.71 X10*6/uL (4.20-5.50); Red Cell Distribution Width 15.1 % (11.0-16.0); White Blood Count 8.5 X10*3/uL (4.8-10.8)
[2024-03-01 15:03] LABS: Alanine Aminotransferase 10 U/L (0-31); Albumin Level 4.4 g/dL (3.5-5.0); Alkaline Phosphatase 81 U/L (39-117); Anion Gap 13 (12-20); Aspartate Amino Transferase 13 U/L (5-31); Bilirubin Total 0.2 mg/dL (0.0-1.0); Blood Urea Nitrogen 7 mg/dL (9-16); Calcium 9.7 mg/dL (8.4-10.2); Carbon Dioxide 26 mmol/L (22-29); Chloride 105 mmol/L (96-108); Creatinine Clr Calc Pharmacy 114.6; Estimated Glomerular Filt Rate > 60; Glucose Random 85 mg/dL (60-115); Magnesium 2.3 mg/dL (1.6-2.6); Potassium 3.5 mmol/L (3.3-5.1); Sodium 140 mmol/L (135-145); Total Protein 7.7 g/dL (6.5-8.0)
[2024-03-01 15:08] LABS: HCG Quantitative < 2 mIU/mL
[2024-03-01 15:25] LABS: Influenza A PCR NEGATIVE (Negative); Influenza B PCR NEGATIVE (Negative); Resp Syncy Virus RNA Qual PCR NEGATIVE (Negative); SARS COV2 PCR INHOUSE NEGATIVE (Negative)
[2024-03-01] MEDS: bisacodyL 5 MG TABLET.DR 10 MG PO (15:43)
[2024-03-01] MEDS: Docusate Sodium 100 MG/10 ML LIQUID PO (15:43)
[2024-03-01 15:53] LABS: Appearance Urine Clear; Color Urine Yellow; Glucose Urine UA Negative (Negative); Leukocyte Esterase Urine Trace (Negative); Nitrite Urine Negative (Negative); UMIC TRIGGER UACC YES; UPreg QC Valid YES; Urine Blood Negative (Negative); Urine Ketones Trace mg/dL (Negative); Urine Pregnancy NEGATIVE (NEGATIVE); Urine Protein Trace mg/dL (Neg-Trace)
[2024-03-01 16:29] LABS: Bacteria Urine 1+ (None Seen); Hyaline Casts Urine 0-2 /LPF (0-2); RBC Urine 0-2 /HPF (0-2); UACC Culture Trigger YES
[2024-03-01] MEDS: oxyCODONE HCl Immed Release 5 MG TABLET PO ×2 (16:55→17:41)
[2024-03-01] MEDS: Ketorolac Tromethamine 30 MG/ML VIAL IM (16:55)
[2024-03-01] MEDS: diazePAM 5 MG TABLET PO (16:55)
[2024-03-01] MEDS: Acetaminophen 325 MG TABLET 975 MG PO (16:55)
[2024-03-01 18:16] VITALS: BP 108/74; PULSE 80; RESP 16; TEMP 36.8; O2SAT 99
== END 2024-03-01 18:16 | disposition home or self-care (01) ==
PROVIDERS: Physician Assistant; Physician Assistant Medical; Emergency Provider Emergency Medicine; PCP Nurse Practitioner Family
DX: M54.9 Dorsalgia, unspecified (principal); K59.00 Constipation, unspecified; N39.0 Urinary tract infection, site not specified
CPT/HCPCS: 0241U; 36415; 74176; 80053; 81001; 81025; 83735; 84702; 85025; 87086; 99283; 99284; J1885

== ENCOUNTER 2025-02-18 10:27 | Outpatient (REF) | payer OTHER, SELFPAY ==
--- OUTSIDE RECORDS SUMMARY | 2025-02-18 12:15 | XMS_ITS | Clinical Summary ---
Author Organization [facility] Address [address] [place] [address] Phone Care Team Providers Care Cushion Stuffer Name Role Phone Unavailable Primary Care Provider Unavailabl e Immunizations Immunization Administration Dates Next Due DTaP 5 09/04/2001, 9,05/26/1998, 998,1997 HPV, Quadrivalent 09/07/2010,05/29/2009,03/21/20 09 Hep B, ped/adol 05/26/1998,1997,1997 Hib (PRP-T) 03/24/1999, 8,1997, 997 IPV 09/04/2001 MMR 09/04/2001,03/24/1999 Meningococcal Conj (Menactra) MCV4P 09/07/2010 OPV 09/11/1998,1997,1997 Tdap 09/07/2010 Family History Relation Name Status Comments Brother Alive Brother: ADD/AD HD Half-Brother Alive Half brother (M ): Asthma Mother Alive Mother: Asthma Anxiety Depression Other No family histo ry of *Thrombophilia, No family history of *Heart Disease, No family history of *Dental caries, No family history of *Sudden /[place] under 55 Social History Tobacco Use Types Packs/Day Years Used Date Smoking Tobacco: Never Comments:Never smoker Comments Unknown Sex and Gender Information Value Date Recorded Sex Assigned at Not on file Legal Sex Female 5:00 PM EDT Gender Identity Not on file Sexual Orientation Not on file Last Filed Vital Signs Vital Sign Reading Time Taken Comments Blood Pressure 94/66 09/25/2015 12:00 AM EST Pulse 82 09/25/2015 12:00 AM EST Temperature 36.8 ??C (98.3 ??F) 03/15/2014 1 2:00 AM EDT Respiratory Rate - - Oxygen Saturation - - Inhaled Oxygen Concentration - - Weight 69.8 kg (153 lb 12.8 oz) 015 12:00 AM EST Height 157.5 cm (5' 2 ) 09/25/2015 12:0 0 AM EST Body Mass Index 28.13 09/25/2015 12:00 AM EST Plan of Treatment Health Maintenance Due Date Last Done Comments Varicella Vaccines (1 of 2 - 13+ 2-dose series) 2010 DTaP,Tdap,and Td Vaccines (7 - Td or Tdap) 09/07/2020 09/07/2010, 09/04/2001, 03/24/1999, Additional history exists Influenza Vaccines (#1) 2024 COVID-19 Vaccine (2023- season) 2024 Hepatitis B Vaccines Completed 05/26/1998, 1997, 1997 HIB Vaccines Completed 03/24/1999, 05/14, 1997, Additional history exists IPV Vaccines Completed 09/04/2001, 08/15, 1997, Additional history exists MMR Vaccines Completed 09/04/2001, 03/24/1999 HPV Vaccines Completed 09/07/2010, 05/14, 03/21/2009 Meningococcal Vaccine Aged Out 09/07/2010 No david mary eligible based on patient's age to complete this topic Hepatitis A Vaccines Aged Out No long er eligible based on patient's age to complete this topic Men B Vaccine Aged Out No longer elig ible based on patient's age to complete this topic Pneumococcal Vaccine Aged Out No long er eligible based on patient's age to complete this topic
--- OUTSIDE RECORDS SUMMARY | 2025-02-18 12:15 | XMS_ITS | Encounter Summary ---
Author Organization [facility] Address [address] [place] [id number] Phone Care Team Providers Care Management Associate Name Role Phone mEa So MD Primary Care Provider Encounter Details Date Type Department Care Team (Late st Contact Info) Description 06/30/2017 Conversion Encounter [facility] [address] [place] [address] Social History Tobacco Use Types Packs/Day Years Used Date Smoking Tobacco: Never Comments:Never smoker Comments Unknown Sex and Gender Information Value Date Recorded Sex Assigned at Not on file Legal Sex Female 5:00 PM EDT Gender Identity Not on file Sexual Orientation Not on file documented as of this encounter Plan of Treatment Not on file documented as of this encounter Visit Diagnoses Not on filedocumented in this encounter Care Teams Management Associate Relationship Specialty Start Date End Date Ema So MD [address] [place] [address] PCP - General 06/24/17 03/01/23 documented as of this encounter
--- OUTSIDE RECORDS SUMMARY | 2025-02-18 12:15 | XMS_ITS | Encounter Summary ---
Author Organization [facility] Address [address] [place] [address] Phone Care Team Providers Care Synchro Assembler Name Role Phone Ema So MD Primary Care Provider [phone] Encounter Details Date Type Department Care Team (Late st Contact Info) Description 02/07/2013 Documentation [facility] Family Medicine [address] [place] [address] Family Medicine, Physician [address] [place], [place] [phone] Social History Tobacco Use Types Packs/Day Years Used Date Smoking Tobacco: Never Assessed Comments Unknown Sex and Gender Information Value Date Recorded Sex Assigned at Not on file Legal Sex Female 5:00 PM EDT Gender Identity Not on file Sexual Orientation Not on file documented as of this encounter Plan of Treatment Not on file documented as of this encounter Visit Diagnoses Not on filedocumented in this encounter Care Teams Synchro Assembler Relationship Specialty Start Date End Date Ema So MD [address] [place] [id number] PCP - General 06/24/17 03/01/23 documented as of this encounter
[2025-02-18 13:03] LABS: MANUAL DIFF FLAG NO
[2025-02-18 13:18] LABS: Basophils Percent Auto 0.4 % (0-2); Eosinophils Percent Auto 0.9 % (0-4); Hematocrit 40.9 % (37.0-47.0); Hemoglobin 13.7 g/dl (12.0-16.0); Imm Gran Abs Auto 0.01 X10*3/uL (0.00-0.03); Imm Gran Pct Auto 0.2 % (0.0-0.4); Lymphocytes Absolute Auto 1.7 X10*3/uL (1.2-4.9); Lymphocytes Percent Auto 38.2 % (20-40); Mean Corpuscular HGB Conc 33.5 g/dl (31.0-35.0); Mean Corpuscular Hemoglobin 28.2 pg (27.0-33.0); Mean Corpuscular Volume 84.2 fL (80.0-98.0); Mean Platelet Volume 10.1 fL (9.4-12.3); Monocytes Absolute Auto 0.4 X10*3/uL (0.1-1.2); Monocytes Percent Auto 7.8 % (2-11); Neutrophils Absolute Auto 2.4 x10*3/uL (2.0-8.3); Neutrophils Percent Auto 52.5 % (45-73); Platelet Count 320 X10*3/uL (160-400); Red Blood Count 4.86 X10*6/uL (4.20-5.50); Red Cell Distribution Width 14.6 % (11.0-16.0); White Blood Count 4.5 X10*3/uL (4.8-10.8)
[2025-02-18 14:00] LABS: Erythrocyte Sedimentation Rate 5 MM/HR (0-20)
[2025-02-18 14:06] LABS: Alanine Aminotransferase 34 U/L (0-31); Albumin Level 4.6 g/dL (3.5-5.0); Alkaline Phosphatase 69 U/L (39-117); Anion Gap 10 (12-20); Aspartate Amino Transferase 28 U/L (5-31); Bilirubin Total 0.4 mg/dL (0.0-1.0); Blood Urea Nitrogen 16 mg/dL (9-16); C Reactive Protein < 0.10 mg/dL (< or = 0.50); Calcium 9.6 mg/dL (8.4-10.2); Carbon Dioxide 24 mmol/L (22-29); Chloride 108 mmol/L (96-108); Cholesterol 131 mg/dL (<200); Estimated Glomerular Filt Rate > 60; Glucose Random 83 mg/dL (60-115); HDL Cholesterol 51 mg/dL (>40); LDL Cholesterol Calculated 73 mg/dL (<100); Potassium 4.1 mmol/L (3.3-5.1); Sodium 138 mmol/L (135-145); TSH reflex Free T4 1.44 uIU/mL (0.32-4.0); Total Protein 7.8 g/dL (6.5-8.0); Triglycerides 35 mg/dL (<150); Vitamin D 25-OH Total 12.2 ng/mL (>30)
[2025-02-19 04:43] LABS: HBS Num1 > 1000.00 mIU/mL (0-7.99); HBc Num1 0.15 S/CO (0.00-0.79); HBsAGNum1 0.36 S/CO (0.00-0.99); HIV AB/AG Nonreactive (Nonreactive); Hepatitis A Antibody IgM 0.16 Index (0-0.79); Hepatitis B Core Antibody Nonreactive (Nonreactive); Hepatitis B Surface Antigen Negative (Negative); ~Hepatitis A Antibody IgM Nonreactive (Nonreactive); ~Hepatitis B Surface Antibody REACTIVE (Nonreactive); ~Hepatitis C Antibody Nonreactive (Nonreactive)
[2025-02-19 22:24] LABS: Mumps Virus IgG Antibody >300.00 AU/mL; Rubella IgG Antibody 2.77 Index; Rubeola IgG (Measles) >300.00 AU/mL
[2025-02-21 06:22] LABS: TS Negative Control Passed; TS Panel A 0; TS Panel B 0; TS Positive Control Passed; TSpotTB Negative (Negative)
== END 2025-02-18 10:28 | disposition home or self-care (01) ==
LOC: HO.HMGCLDS 10:27
PROVIDERS: PCP Nurse Practitioner Family; Visit Provider Nurse Practitioner Family
DX: Z00.00 Encounter for general adult medical examination without abnormal findings (principal); Z28.39 Other underimmunization status; R63.4 Abnormal weight loss
CPT/HCPCS: 36415; 80053; 80061; 82306; 84443; 85025; 85652; 86140; 86481; 86704; 86706; 86709; 86735; 86762; 86765; 86787; 86803; 87340; 87389

== ENCOUNTER 2025-07-16 10:05 | Outpatient (REF) | payer OTHER, SELFPAY ==
--- OUTSIDE RECORDS SUMMARY | 2025-07-16 11:29 | XMS_ITS | Encounter Summary ---
Author Organization [facility] Address [address] [place] [phone] Phone Care Team Providers Care Stripper And Taper Name Role Phone Ema So MD Primary Care Provider Encounter Details Date Type Department Care Team (Late st Contact Info) Description 06/30/2017 Conversion Encounter [facility] [place] [address] [place] [address] Social History Tobacco Use Types Packs/Day Years [...] on filedocumented in this encounter Care Teams Stripper And Taper Relationship Specialty Start Date End Date Ema So MD [address] [place] [address] PCP - General 06/24/17 03/01/23 documented as of this encounter
--- OUTSIDE RECORDS SUMMARY | 2025-07-16 11:29 | XMS_ITS | Encounter Summary ---
Author Organization [facility] Address [address] [place] [address] Phone Care Team Providers Care Alarm Field Technician Name Role Phone Ema So MD Primary Care Provider Encounter Details Date Type Department Care Team (Late st Contact Info) Description 02/07/2013 Documentation [facility] [place] Family Medicine [address] [place] [address] Family Medicine, Physician [address] [place], [place] [phone] Social History Tobacco Use Types Packs/Day Years [...] on filedocumented in this encounter Care Teams Alarm Field Technician Relationship Specialty Start Date End Date Ema So MD [address] [place] [phone] PCP - General 06/24/17 03/01/23 documented as of this encounter
--- OUTSIDE RECORDS SUMMARY | 2025-07-16 11:29 | XMS_ITS | Clinical Summary ---
Author Organization [facility] Address [address] [place], [place] [id number] Phone Care Team Providers Care Ctrs Name Role Phone Unavailable Primary Care Provider [...] *Dental caries, No family history of *Sudden /[place] under 55 Social History Tobacco Use Types [...] 82 09/25/2015 12:00 AM EST Temperature 36.8 C (98.3 F) 03/15/2014 12:00 AM EDT Respiratory Rate - - Oxygen [...] 03/24/1999, Additional history exists Influenza Vaccines (#1) 2025 COVID-19 Vaccine ( season) 2025 Hepatitis B Vaccines Completed 05/26/1998, 1997, 1997 [...]
[2025-07-16 12:55] LABS: MANUAL DIFF FLAG NO
[2025-07-16 13:12] LABS: Hematocrit 42.0 % (37.0-47.0); Hemoglobin 13.9 g/dl (12.0-16.0); Imm Gran Abs Auto 0.01 X10*3/uL (0.00-0.03); Imm Gran Pct Auto 0.2 % (0.0-0.4); Lymphocytes Absolute Auto 2.0 X10*3/uL (1.2-4.9); Mean Corpuscular HGB Conc 33.1 g/dl (31.0-35.0); Mean Corpuscular Hemoglobin 29.0 pg (27.0-33.0); Mean Corpuscular Volume 87.7 fL (80.0-98.0); NRBC Abs Auto 0.000 X10*3/uL (0.0-0.012); NRBC Pct Auto 0.0 /100WBC (0.0-0.2); Platelet Count 274 X10*3/uL (160-400); Red Blood Count 4.79 X10*6/uL (4.20-5.50); Reticulocytes Absolute 0.076 X10*6/uL (0.026-0.095); White Blood Count 5.9 X10*3/uL (4.8-10.8)
[2025-07-16 13:45] LABS: Alanine Aminotransferase 26 U/L (0-31); Albumin Level 4.8 g/dL (3.5-5.0); Alkaline Phosphatase 86 U/L (39-117); Anion Gap 13 (12-20); Aspartate Amino Transferase 27 U/L (5-31); Blood Urea Nitrogen 14 mg/dL (9-16); Calcium 9.2 mg/dL (8.4-10.2); Carbon Dioxide 23 mmol/L (22-29); Chloride 109 mmol/L (96-108); Cholesterol 142 mg/dL (<200); Estimated Glomerular Filt Rate > 60; HDL Cholesterol 42 mg/dL (>40); Iron 159 mcg/dL (30-160); Percent Iron Saturation 44 % (15-50); Potassium 3.8 mmol/L (3.3-5.1); Sodium 141 mmol/L (135-145); Total Iron Binding Capacity 360 mcg/dL (228-428); Total Protein 7.5 g/dL (6.5-8.0); Triglycerides 47 mg/dL (<150); Unsaturated Iron Binding 201 ug/dL
[2025-07-16 13:46] LABS: Ferritin 30 ng/mL (10-122)
[2025-07-23 09:44] LABS: Anti Nuclear Antibody Pattern Nuclear, Speckled; Anti Nuclear Antibody Screen POSITIVE (NEGATIVE); Anti Nuclear Antibody Titer 1:40 titer
== END 2025-07-16 10:06 | disposition home or self-care (01) ==
LOC: HO.HMGCLDS 10:05
PROVIDERS: PCP Nurse Practitioner Family; Visit Provider Nurse Practitioner Family
DX: Z01.84 Encounter for antibody response examination (principal); N92.0 Excessive and frequent menstruation with regular cycle; R53.83 Other fatigue
CPT/HCPCS: 36415; 80053; 80061; 82306; 82728; 83540; 84443; 85025; 85045; 86038; 86039

== ENCOUNTER 2025-09-06 13:04 | Outpatient (AMB) | payer OTHER, SELFPAY ==
--- NOTE | 2025-09-06 13:06 | AM.OFFWIN_ITS ---
Intake Vital Signs 09/06/25 13:07 Height 5 ft Weight 178 lb BMI 34.8 BP 100/70 Blood Pressure Location Lt brachial Position Sitting Pulse 84 Pulse Source Pulse Oximeter Temp 98.3 F Temp Source Oral Pulse Oximetry (%) 99 Oxygen Delivery Method Room Air Intake Visit Reasons: ep left leg numbness Intake Note: EP complains of migraine one day and left leg numbness and left ankle pain for two days and vision changes. Patient Tobacco Use Status: Never used Tobacco Allergies No Known Allergies Allergy (Verified 09/06/25 13:13) Do you need a note to return to daycare/school/sports/work: No HPI HPI Comments History of Present Illness Details This is a 30-year-old female with no stated past medical history who reports being diagnosed with a possible ?autoimmune disorder? recently, pending rheumatological evaluation, presenting for evaluation of numbness and tingling in her left leg that has been present intermittently over the past 2 days. Patient states that she will notice it during the day and also wake at nighttime with numbness in her left posterior leg. Patient states the distribution is primarily throughout her posterior left leg. Patient does report having chronic low back pain but does not take any medication at this time for management of her low back pain. Patient has been prescribed meloxicam and cyclobenzaprine but will take only the cyclobenzaprine at nighttime to help her sleep. Patient also reports having a posterior headache this morning for which she took 2 Advil. Patient states that her headache has resolved at this time but she describes this headache as a migraine-like headache. She denies having any nausea, vomiting, visual changes or lightheadedness in conjunction with this headache. Additionally, the patient reports visual changes over the past four months -- reports the gradual onset of difficulty seeing things at a distance, most notably when driving. Patient denies having any difficulty reading. She states her difficulty with distance has now become constant. Of note, she has never had a formal ophthalmological examination and does not currently wear corrective lenses. [facility], [facility] Medical History Breast pain, left Prolonged menstrual cycle Menorrhagia Anxiety Family History Maternal Grandfather Colon cancer Social History Housing: House Alcohol intake: current Alcohol intake frequency: holidays/special occasions only Patient Tobacco Use Status: Never used Tobacco e-Cigarette/Vaping Use: Never Used Second Hand Smoke Exposure: No service: No Current occupational status: employed Current occupation: [employer] Current occupational exposures/hazards: Yes Sexual orientation: Straight/Heterosexual Gender identity: Female Cognitive needs: No Hearing needs: No Vision needs: No Review of Systems Const All systems reviewed & are unremarkable except as noted in HPI and below Denies chills, Denies difficulty sleeping, Denies fever(s), Reports headache(s) (resolved), Denies lethargy and Denies weakness Eyes Reports as per HPI, Denies loss of peripheral vision, Reports other visual disturbances (difficult to see far distances), Denies seeing flashes, Denies photophobia and Denies spots in vision ENT Reports no additional complaints, Denies dizziness and Reports headache(s) (resolved) Card Reports no additional complaints Resp Reports no additional complaints GI Reports no additional complaints, Denies nausea and Denies vomiting Reports no additional complaints Musc Reports no additional complaints, Reports back pain, Denies arthralgias, Reports numbness (LLE), Reports radiating pain into limb and Reports tingling (LLE) Skin/Breast Reports system reviewed and no additional complaints, except as documented Neuro Reports no additional complaints, Denies dizziness, Reports headache(s) (resolved), Reports numbness (LLE), Reports tingling (LLE) and Denies weakness Psych Reports no additional complaints, Denies depression and Denies difficulty concentrating Endo Reports no additional complaints Scott/Lymph Reports no additional complaints Aller/Immun Reports no additional complaints Physical Exam Vital Signs: Last Vital Signs Temp 98.3 F 09/06/25 13:07 Pulse 84 09/06/25 13:07 BP 100/70 09/06/25 13:07 Pulse Ox 99 09/06/25 13:07 Oxygen Delivery Method Room Air 09/06/25 13:07 BMI result Body Mass Index 34.8 Const General: cooperative, healthy appearing, comfortable, no acute distress, well developed, alert, awake and Physically active; No ill appearing or lethargic Nutritional Appearance: average body habitus Orientation/consciousness: patient oriented x3 and No lethargic Limitations: no limitations HEENT Head: Yes normal to inspection and Yes normocephalic Ears: hearing grossly normal bilaterally Eyes General: appearance normal, both eyes and all related structures Visual Albrecht: normal visual albrecht by confrontation Alignment and Position: alignment normal Periorbital: periorbital findings normal Eyelids: Yes eyelids normal Conjunctivae: conjunctivae normal Sclerae: sclerae normal Corneas: corneas normal Pupils: Equal, round and reactive pupils present and Pupils normal by confrontation EOM: EOMs intact bilaterally Direct Ophthalmoscopy: normal light reflex, no photophobia, no papilledema, No optic disc abnormality and No photophobia Back/Spine/Pelvis Thoracic/Lumbar Spine: thoracic and lumbar spine normal to inspection, thoraco- lumbar ROM normal, paraspinal muscle tenderness bilaterally in the mid lumbar and on the left greater than right, No thoracic spinal tenderness and No lumbar spinal tenderness Sacroiliac joints: on the right nontender and on the left tender to palpation Sacrum: no tenderness Coccyx: no tenderness Skin General skin exam: no rashes or lesions noted Neuro General: patient oriented x3, Normal light touch and pain sensation (throughout lower extremities bilaterally) and CN's II-XI intact bilaterally Cranial nerves: Yes Equal, round and reactive pupils present Cognition (Neuro): normal cognition Gait exam (Neuro): Normal gait present Motor exam (neuro): 5/5 motor strength present throughout Extrem Right lower extremity: hip/thigh Details: normal to inspection and normal ROM; no tenderness and no swelling Left lower extremity: normal to inspection and hip/thigh Details: normal to inspection; no tenderness and no swelling Psych Appearance: grossly normal Mental Status: mental status grossly normal Insight: Good insight present (Psych) Judgement: Good judgement present (Psych) Assessment & Plan Assessment & Plan (1) Low back pain with left-sided sciatica: Comment: Patient is seen and evaluated. Imaging is deferred at this time. Patient is instructed to take her meloxicam and cyclobenzaprine as prescribed any physical therapy evaluation will be requested. Code(s): M54.42 - Lumbago with sciatica, left side Qualifiers: Chronicity: acute Back pain laterality: bilateral Qualified Code(s): M54.42 - Lumbago with sciatica, left side Plan: Meloxicam and cyclobenzaprine as previously prescribed, PT eval is pending at this time. Additionally, patient is urged to obtain a routine baseline ophthalmological evaluation prior to her rheumatology intake. Patient will follow up with PCP as needed. Orders: Orders PT Evaluation and Treatment Today M54.42 - Lumbago with sciatica, left side Coding Level of Care Code Est Pt Level 3 (63788) Diagnoses Acute bilateral low back pain with left-sided sciatica M54.42 Chronicity: acute Back pain laterality: bilateral Time Spent (min) 20
[2025-09-06 13:07] VITALS: BP 100/70; PULSE 84; TEMP 36.8; O2SAT 99; BMI 34.8
--- OUTSIDE RECORDS SUMMARY | 2025-09-06 15:06 | XMS_ITS | Clinical Summary ---
Author Organization [facility] Address [address] [place] [address] Phone Care Team Providers Care Bag End Sewer Name Role Phone Casie Yanes MD Primary Care Provider Encounters Date Type Department Care Team Description 08/02/2025 Telephone [facility] Rheumatology [address] [place] [address] Unknown, Unknown, Referral from Last 3 Months Social History Tobacco Use Types Packs/Day Years Used Date Smoking Tobacco: Never Assessed Education Answer Date Recorded Are you interested in more education? Not on niko e 03/11/2023 Are you concerned about learning? Not on file 03/11/2023 No 03/11/2023 No 03/11/2023 Digital Access Answer Date Recorded No 04/11/2023 No 04/11/2023 No 04/11/2023 Reliable internet access at home? Not on file 04/11/2023 Device with a working camera? Not on file Comments Unknown Sex and Gender Information Value Date Recorded Sex Assigned at Not on file Legal Sex Female 8:49 PM EDT Gender Identity Not on file Sexual Orientation Not on file Plan of Treatment Not on file Medical Devices Not on file Insurance [facility] [place] [address] [place] [address] [place] [address] [place] [address] [place] [address] [place] [address] [place] [address] [place] [address] ACO Care Teams Bag End Sewer Relationship Specialty Start Date End Date Casie Yanes MD [address] [place] [address] [place] [address] PCP - General 08/02/25 Additional Source Comments The information contained in this document represents components of the legal health record. It is not the complete legal health record.[facility]
--- OUTSIDE RECORDS SUMMARY | 2025-09-06 15:06 | XMS_ITS | Encounter Summary ---
Author Organization [facility] Address [address] [address] Phone Care Team Providers Care Transfer Car Operator Name Role Phone Casie Yanes MD Primary Care Provider Reason for Visit * Reason Onset Date Comments Referral 08/02/2025 Encounter Details Date Type Department Care Team (Late st Contact Info) Description 08/02/2025 Telephone [facility] Rheumatology [address] [place] [address] Unknown, Unknown, MD Referral Social History Tobacco Use Types Packs/Day Years [...] on file documented as of this encounter Progress Notes * Christopher Guzmán - 09/06/2025 11:22 AM EDT Pt called in, said her PCP faxed the referral again this morning. [facility] [employer] (Please do not reply to this user; this inbox is not monitored.) Thank you. * Joy Dong - 09/06/2025 9:06 AM EDT Patient called in to follow up. Please contact and advise. [employer] (Please do not reply to this user; this inbox is not monitored.) Thank you. * Medina Sol Villanueva - 09/03/2025 2:06 PM EDT Pt is calling to follow up on her referral. Pleae contact and advise. [employer] (Please do not reply to this user; this inbox is not monitored.) Thank you. * Gus Francis - 08/02/2025 2:06 PM EDT [facility] Top Smart Phrases: Locating Referral Fax Hello, We are notifying you that the patient called to schedule a new patient appointment. The referral is not listed on file or in the media tab. The patient has informed us that the referral was faxed out. Please review the SFA and contact the patient with the referral determination if it is on file or not. Thank you If caller not the patient: Name: Relationship: Referral Order Details provided by caller Diagnosis: N/a Reason/Specify: +ROCCO Referred To Name:N/A Referral Fax Out Dates: 07/26/25 Additional information: Pt states that it is ok to schedule her for the next available NPV which iseither on a Tuesday at any time, or on a Tuesday/Tuesday/Tuesday after 3:00, then to leave a detailed VM with the date/time. Agent Action: > Route Encounter to FD Pool > Reason for Call: Referral > Comment: Call Back & Locate Referral in SFA Needed > Reiterate Scripting: Provide our referral not on file scripting Required Scripting: If the referral is not on file: Maryanne, thank you for calling. I see that you'vementioned your provider faxed over a referral, but we have not yet received it on our end. Sometimes there can be a delay in processing or receiving faxes. Can you please confirm the date it was sent and the fax number that was used? Provide the caller with the office fax number. I will be happy to send a message over to the office for them to review their records and let you know if they've received it. documented in this encounter Plan of Treatment Not on file documented as of this encounter Visit Diagnoses Not on filedocumented in this encounter Care Teams Transfer Car Operator Relationship Specialty Start Date End Date Casie Yanes MD [address] [place] [address] [place] [address] PCP - General 08/02/25 documented as of this encounter Additional Source Comments The information contained in this document represents components of the legal health record. It is not the complete legal health record.[facility]
== END 2025-09-06 13:40 | disposition home or self-care (01) ==
PROVIDERS: PCP Nurse Practitioner Family; Visit Provider Physician Assistant
DX: M54.42 Lumbago with sciatica, left side (principal)

== ENCOUNTER → 2025-09-06 13:04 | Outpatient (BNVA) | payer OTHER, SELFPAY | PROVIDERS: PCP Nurse Practitioner Family; Visit Provider Physician Assistant | DX: M54.42 Lumbago with sciatica, left side (principal); R20.0 Anesthesia of skin; G89.29 Other chronic pain; Z79.899 Other long term (current) drug therapy; R51.9 Headache, unspecified | CPT/HCPCS: 99212 ==